=== PATIENT | male | born 1960 | race Caucasian/White ===

== ENCOUNTER → 2020-06-05 | Outpatient (CLI) | payer MEDICARE, OTHER | LOC: KOH-I 11:37 | DX: R10.30 Lower abdominal pain, unspecified (principal) | CPT/HCPCS: 74018 ==

== ENCOUNTER → 2020-06-11 | Outpatient (CLI) | payer MEDICARE, OTHER | LOC: KOH-I 08:51 | DX: R10.30 Lower abdominal pain, unspecified (principal); N28.1 Cyst of kidney, acquired | CPT/HCPCS: 74176 ==